=== PATIENT | female | born 1960 | race Caucasian/White ===

== ENCOUNTER 2020-04-27 15:16 | Emergency (ER) | payer MEDICAID ==
[~2020-04-27] VITALS: Ht 167.6 cm; Wt 55.4 kg
[~2020-04-27 15:16] MED LIST: ASPI325T20 PO
--- NOTE | 2020-04-27 17:04 | NUR ---
TASK RN: PT TO ROOM FROM [facility], GAIT STEADY. 59 YR OLD FEMALE HERE WITH C/O "I WENT TO GET A COVID 19 TEST. SHE TOOK MY VITALS AND TOLD ME TO COME STRAIGHT TO [facility]. SHE SAID I MIGHT HAVE PNEUMONIA" FOR 2 WEEKS HAS BEEN THROWING UP, DIARRHEA, HAS COPD AND ASTHMA, WHOLE BODY ACHES
--- NOTE | 2020-04-27 17:54 | NUR ---
PATIENT RESTING IN [place], JON, CALL LIGHT WITHIN REACH. WAITING FOR PROVIDER TO PLACE ORDERS.
[2020-04-27] MEDS ORDERED: ACETAMINOPHEN 325 MG TABLET ONE (19:37)
--- NOTE | 2020-04-27 20:12 | NUR ---
COVID SWAB BY THIS NURSE AND WALKED TO LAB.
[2020-04-27] MEDS ORDERED: ACETAMINOPHEN 325 MG TABLET PO ONE (20:30)
[2020-04-27 20:39] LABS: BASOPHILS % (AUTO) 2 % (0-1); EOSINOPHILS % (AUTO) 0 % (1-7); LYMPHOCYTES % (AUTO) 18 % (22-44); MEAN CORPUSCULAR HEMOGLOBIN 30.4 pg (27.0-34.8); MEAN CORPUSCULAR HGB CONC 34.7 g/dL (32.4-35.8); MEAN PLATELET VOLUME 7.4 fL (7.4-10.4); MONOCYTES % (AUTO) 16 % (2-9); NEUTROPHILS % (AUTO) 64 % (42-75); PLATELET COUNT 205 x10^3/uL (130-400); RED BLOOD COUNT 4.05 x10^6/uL (3.82-5.3); RED CELL DISTRIBUTION WIDTH 12.9 % (9.6-15.2)
[2020-04-27 20:48] LABS: ANION GAP 9 mmol/L (5-15); CALCIUM 8.4 mg/dL (8.5-10.1); CHLORIDE 104 mmol/L (98-107); CREATININE 0.91 mg/dL (0.55-1.02)
[2020-04-27 20:52] LABS: TROPONIN I < 0.015 ng/mL (0.000-0.045)
[2020-04-27 21:06] VITALS: BP 97/54
[2020-04-27 21:06] LABS: MD SCAN
--- NOTE | 2020-04-27 21:21 | NUR ---
DC HOME WITH INSTRUCT, PT VERBALIZES UNDERSTANDING OF INSTRUCT AND FOLLOW UP. TO RETURN TO ER IF WORSE OR CONCERNS.
== END 2020-04-27 21:33 | disposition home or self-care (01) ==
LOC: ED 21:25
DX: J18.9 Pneumonia, unspecified organism (principal); Z20.822 Contact with and (suspected) exposure to COVID-19; J02.9 Acute pharyngitis, unspecified; R07.89 Other chest pain; M79.10 Myalgia, unspecified site; R11.2 Nausea with vomiting, unspecified; R06.02 Shortness of breath; I25.2 Old myocardial infarction; J44.9 Chronic obstructive pulmonary disease, unspecified; F17.200 Nicotine dependence, unspecified, uncomplicated
CPT/HCPCS: 36415; 71045; 80048; 82040; 84484; 85025; 99284; U0003

== ENCOUNTER 2020-05-02 08:37 | Emergency (ER) | payer MEDICAID ==
[~2020-05-02] VITALS: Ht 167.6 cm; Wt 50.8 kg
--- NOTE | 2020-05-02 08:50 | NUR ---
patient came last with simalar symptoms, and since has felt the same which is cough, sob, body aches, headache and some abdominal pain and nausea.
[2020-05-02] MEDS ORDERED: ALBUTEROL/IPRATROPIUM 2.5MG/0.5MG, 3 ML NPPB SCH (09:00)
[2020-05-02] MEDS ORDERED: ALBUTEROL SULFATE 2.5 MG/3 ML ONE (09:05)
[2020-05-02 09:16] LABS: BASOPHILS % (AUTO) 1 % (0-1); EOSINOPHILS % (AUTO) 1 % (1-7); LYMPHOCYTES % (AUTO) 15 % (22-44); MEAN CORPUSCULAR HEMOGLOBIN 29.8 pg (27.0-34.8); MEAN CORPUSCULAR HGB CONC 34.3 g/dL (32.4-35.8); MEAN PLATELET VOLUME 7.4 fL (7.4-10.4); MONOCYTES % (AUTO) 11 % (2-9); NEUTROPHILS % (AUTO) 72 % (42-75); PLATELET COUNT 472 x10^3/uL (130-400); RED BLOOD COUNT 4.33 x10^6/uL (3.82-5.3); RED CELL DISTRIBUTION WIDTH 13.1 % (9.6-15.2)
[2020-05-02 09:17] LABS: MD NO
[2020-05-02 09:27] LABS: ALBUMIN 2.9 g/dL (3.4-5.0); ANION GAP 8 mmol/L (5-15); CALCIUM 9.1 mg/dL (8.5-10.1); CHLORIDE 105 mmol/L (98-107)
[2020-05-02 09:30] LABS: TROPONIN I < 0.015 ng/mL (0.000-0.045)
[2020-05-02] MEDS ORDERED: CEFTRIAXONE PMX 1GM/50ML 50 ML ONE (10:18)
[2020-05-02] MEDS ORDERED: POTASSIUM CHLORIDE 20 MEQ PACKET ONE (10:20)
[2020-05-02 10:29] VITALS: BP 109/72
--- NOTE | 2020-05-02 10:30 | NUR ---
discharge reviewd shows understanding to picker and packer /start scripts today and follow up
[2020-05-02] MEDS ORDERED: POTASSIUM CHLORIDE 20 MEQ TAB.ER.PRT PO ONE (11:00)
[2020-05-02] MEDS ORDERED: CEFTRIAXONE 1,000 MG IM ONE (11:00)
== END 2020-05-02 10:32 | disposition home or self-care (01) ==
LOC: ED 08:59
DX: J18.9 Pneumonia, unspecified organism (principal); J44.1 Chronic obstructive pulmonary disease with (acute) exacerbation; I25.2 Old myocardial infarction; R07.89 Other chest pain; R05 Cough; R06.00 Dyspnea, unspecified; E87.6 Hypokalemia; F17.200 Nicotine dependence, unspecified, uncomplicated
CPT/HCPCS: 36415; 71045; 80048; 82040; 83880; 84484; 85025; 93005; 94640; 96372; 99285; J0696; J7512